=== PATIENT | male | born 1985 | race Caucasian/White ===

== ENCOUNTER 2016-03-02 23:49 | Emergency (ER) | payer BC ==
[2016-03-03] MEDS ORDERED: TDaP 0.5 ML VIAL IM.VACC ONE (01:23)
[2016-03-03] MEDS ORDERED: LIDOCAINE/EPI 1% MDV 20 ML ONE (01:57)
== END 2016-03-03 02:59 | disposition home or self-care (01) ==
LOC: ER 23:49
DX: S61.411A Laceration without foreign body of right hand, initial encounter (principal); M79.641 Pain in right hand; W45.8XXA Other foreign body or object entering through skin, initial encounter; Y92.009 Unspecified place in unspecified non-institutional (private) residence as the place of occurrence of the external cause; I10 Essential (primary) hypertension; Z79.899 Other long term (current) drug therapy; Z23 Encounter for immunization
CPT/HCPCS: 90471